=== PATIENT | female | born 1970 | race Caucasian/White ===

== ENCOUNTER 2017-01-28 13:48 | Outpatient (RCR) | payer MEDICAID | END 2017-03-31 10:26 | disposition home or self-care (01) | LOC: WSPT 13:48 | DX: M54.9 Dorsalgia, unspecified (principal) ==

== ENCOUNTER 2019-08-31 20:59 | Emergency (ER) | payer SELFPAY ==
[~2019-08-31] VITALS: Ht 162.6 cm; Wt 72.7 kg
[2019-08-31 21:13] VITALS: BP 133/85; PULSE 102; TEMP 98.1
[2019-08-31] MEDS ORDERED: MULTI VITAMINS1 TAB PO (21:29)
[2019-08-31] MEDS ORDERED: CRUTCHES MC ×2 (22:09)
[2019-09-01] MEDS ORDERED: CRUTCHES MC ×3 (11:07→12:59)
== END 2019-08-31 22:17 | disposition home or self-care (01) ==
LOC: COL.ER 20:59
DX: S86.111A Strain of other muscle(s) and tendon(s) of posterior muscle group at lower leg level, right leg, initial encounter (principal); X50.1XXA Overexertion from prolonged static or awkward postures, initial encounter; Y93.02 Activity, running

== ENCOUNTER → 2019-12-07 | Outpatient (CLI) | payer MEDICAID ==
[~2019-12-07] MED LIST: CRUTCHES MC; MULTI VITAMINS1 TAB PO
== END ==
LOC: MC.RAD 13:33
DX: Z12.31 Encounter for screening mammogram for malignant neoplasm of breast (principal)

== ENCOUNTER 2019-12-10 00:43 | Emergency (ER) | payer MEDICAID ==
[~2019-12-10] VITALS: Ht 162.6 cm; Wt 77.7 kg
[2019-12-10 00:47] VITALS: BP 112/75; TEMP 98.2
[2019-12-10] MEDS ORDERED: PREDNISONE20 MG PO (01:08)
[2019-12-10] MEDS ORDERED: ATARAX50 MG PO (01:08)
[2019-12-10 02:00] VITALS: PULSE 76
== END 2019-12-10 02:00 | disposition home or self-care (01) ==
LOC: COL.ER 00:43
DX: M79.89 Other specified soft tissue disorders (principal); T78.40XA Allergy, unspecified, initial encounter; S60.562A Insect bite (nonvenomous) of left hand, initial encounter; W57.XXXA Bitten or stung by nonvenomous insect and other nonvenomous arthropods, initial encounter
CPT/HCPCS: J7512

== ENCOUNTER 2020-02-11 16:13 | Emergency (ER) | payer MEDICAID ==
[~2020-02-11] VITALS: Ht 162.6 cm; Wt 76.8 kg
[~2020-02-11 16:13] MED LIST changes: +ATARAX50 MG PO; +PREDNISONE20 MG PO
[2020-02-11 16:23] VITALS: TEMP 98.3
[2020-02-11 17:15] LABS: BASO % 0.5 % (0.0-2.0); EOS # 0.1 (0.0-0.7); EOS % 1.4 % (0-4.0); GRAN # 3.5 (1.4-6.5); GRAN % 63.2 % (42.2-75.2); HEMATOCRIT 38.8 % (37.0-47.0); LYMPH # 1.4 (1.2-3.4); LYMPH % 25.4 % (20.0-51.0); MEAN CELL VOLUME 91 fl (80.0-100.0); MEAN CORPUSCULAR HEMOGLOBIN 30 pg (27.0-31.0); MEAN CORPUSCULAR HGB CONC 34 g/dl (33.0-37.0); MEAN PLATELET VOLUME 11.2 fl (7.4-10.4); MONO # 0.5 (0.1-0.6); MONO % 9.3 % (1.7-9.3); PLATELET COUNT 280 K/mm3 (130-400); RED BLOOD COUNT 4.28 M/mm3 (4.10-5.30); REDCELL DISTRIBUTION WIDTH-CV 12.5 % (11.5-14.5)
[2020-02-11 17:20] LABS: ALANINE AMINOTRANSFERASE 8 U/L (4-34); ALBUMIN 4.6 gm/dL (3.5-5.0); ALKALINE PHOSPHATASE 54 U/L (50-136); ANION GAP 12 mmol/L (7-16); AST,SGOT 24 U/L (15-37); BILIRUBIN,TOTAL 0.4 mg/dL (0.0-1.0); BLOOD UREA NITROGEN 16 mg/dL (7-17); C-REACTIVE PROTEIN < 0.5 mg/dL (0.0-0.9); CALCIUM 8.9 mg/dL (8.4-10.2); CARBON DIOXIDE 22 mmol/L (22-30); CHLORIDE 105 mmol/L (98-107); CREATININE, serum 0.61 (0.52-1.25); GLUCOSE 96 mg/dL (74-106); LIPASE 88 U/L (23-300); POTASSIUM 3.7 mmol/L (3.4-5.0); SODIUM 138 mmol/L (137-145); TOTAL PROTEIN 7.9 gm/dL (6.4-8.2)
[2020-02-11 17:29] LABS: TROPONIN-I < 0.012 ng/mL (0.000-0.035)
[2020-02-11 19:39] VITALS: BP 137/92; PULSE 83
== END 2020-02-11 19:43 | disposition home or self-care (01) ==
LOC: COL.ER 16:13
PROVIDERS: Emergency Medicine
DX: R07.89 Other chest pain (principal); I10 Essential (primary) hypertension; F41.9 Anxiety disorder, unspecified; Z88.8 Allergy status to other drugs, medicaments and biological substances; Z79.52 Long term (current) use of systemic steroids
CPT/HCPCS: Q9967

== ENCOUNTER 2020-04-15 13:11 | Emergency (ER) | payer MEDICAID ==
[~2020-04-15] VITALS: Ht 162.6 cm; Wt 72.3 kg
[2020-04-15 13:18] VITALS: TEMP 98.4
[2020-04-15 15:20] VITALS: BP 122/78; PULSE 92
== END 2020-04-15 15:20 | disposition home or self-care (01) ==
LOC: COL.ER 13:11
DX: U07.1 COVID-19 (principal); Z88.1 Allergy status to other antibiotic agents; Z88.8 Allergy status to other drugs, medicaments and biological substances

== ENCOUNTER 2020-04-27 22:45 | Emergency (ER) | payer MEDICAID ==
[~2020-04-27] VITALS: Ht 162.6 cm; Wt 72.3 kg
[2020-04-27 23:00] VITALS: BP 134/82; TEMP 98.8
[2020-04-28 00:54] VITALS: PULSE 89
== END 2020-04-28 00:54 | disposition home or self-care (01) ==
LOC: COL.ER 22:45
DX: M25.561 Pain in right knee (principal); Z88.1 Allergy status to other antibiotic agents; Z88.8 Allergy status to other drugs, medicaments and biological substances

== ENCOUNTER 2020-05-21 22:33 | Emergency (ER) | payer MEDICAID ==
[~2020-05-21] VITALS: Ht 162.6 cm; Wt 71.4 kg
[2020-05-21 22:38] VITALS: TEMP 98.7
[2020-05-21 23:33] VITALS: BP 132/70; PULSE 72
== END 2020-05-21 23:33 | disposition home or self-care (01) ==
LOC: COL.ER 22:33
DX: M25.561 Pain in right knee (principal); Z88.1 Allergy status to other antibiotic agents; Z88.8 Allergy status to other drugs, medicaments and biological substances

== ENCOUNTER → 2020-07-02 | Outpatient (CLI) | payer OTHER, MEDICAID ==
[~2020-07-02] MED LIST changes: +APRESOLINE 10MG10 MG PO; +DULOXETINE HCL40 MG PO; +FLEXERIL 1010 MG/TAB PO; +FLONASE NASAL S16 GM NS; +HUMIRA(CF)40 MG/0.4 SQ; +LYRICA 150MG C150 MG PO; +NAPROSYN500 MG PO; +PREDNISONE 5MG5 MG PO; +PRILOSEC 20MG20 MG PO; +VIVITROL380 MG IM
== END ==
LOC: COL.VAS 13:23
DX: M25.461 Effusion, right knee (principal); M79.661 Pain in right lower leg

== ENCOUNTER 2020-07-09 14:30 | Emergency (ER) | payer OTHER, MEDICAID ==
[~2020-07-09] VITALS: Ht 162.6 cm; Wt 73.6 kg
[~2020-07-09 14:30] MED LIST changes: -APRESOLINE 10MG10 MG PO; -DULOXETINE HCL40 MG PO; -FLEXERIL 1010 MG/TAB PO; -FLONASE NASAL S16 GM NS; -HUMIRA(CF)40 MG/0.4 SQ; -LYRICA 150MG C150 MG PO; -NAPROSYN500 MG PO; -PREDNISONE 5MG5 MG PO; -PRILOSEC 20MG20 MG PO; -VIVITROL380 MG IM
[2020-07-09 14:38] VITALS: BP 118/65; TEMP 97.9
[2020-07-09] MEDS ORDERED: VIVITROL380 MG IM (14:46)
[2020-07-09] MEDS ORDERED: DULOXETINE HCL40 MG PO (14:47)
[2020-07-09] MEDS ORDERED: PRILOSEC 20MG20 MG PO (14:47)
[2020-07-09] MEDS ORDERED: APRESOLINE 10MG10 MG PO (14:48)
[2020-07-09] MEDS ORDERED: FLEXERIL 1010 MG/TAB PO (15:26)
[2020-07-09] MEDS ORDERED: NAPROSYN500 MG PO (15:26)
[2020-07-09 15:38] VITALS: PULSE 89
== END 2020-07-09 15:38 | disposition home or self-care (01) ==
LOC: COL.ER 14:30
DX: M25.50 Pain in unspecified joint (principal); M25.561 Pain in right knee; Z88.8 Allergy status to other drugs, medicaments and biological substances
CPT/HCPCS: J1885

== ENCOUNTER 2020-07-15 09:00 | Outpatient (RCR) | payer OTHER, MEDICAID ==
[~2020-07-15 09:00] MED LIST changes: +APRESOLINE 10MG10 MG PO; +DULOXETINE HCL40 MG PO; +FLEXERIL 1010 MG/TAB PO; +NAPROSYN500 MG PO; +PRILOSEC 20MG20 MG PO; +VIVITROL380 MG IM
== END 2020-08-23 08:35 | disposition home or self-care (01) ==
LOC: WSC 09:00
DX: M25.561 Pain in right knee (principal)

== ENCOUNTER → 2020-08-12 | Outpatient (CLI) | payer OTHER, MEDICAID ==
[~2020-08-12] MED LIST changes: +FLONASE NASAL S16 GM NS; +HUMIRA(CF)40 MG/0.4 SQ; +LYRICA 150MG C150 MG PO; +PREDNISONE 5MG5 MG PO
== END ==
LOC: COL.RAD 08:30
DX: R91.8 Other nonspecific abnormal finding of lung field (principal)

== ENCOUNTER → 2020-10-01 | Outpatient (CLI) | payer MEDICAID | LOC: COL.VAS 13:42 | DX: R07.9 Chest pain, unspecified (principal); R06.02 Shortness of breath; R05 Cough ==

== ENCOUNTER → 2021-01-02 | Outpatient (CLI) | payer MEDICAID ==
[2021-01-02 12:42] LABS: BASO # 0.1 (0.0-0.2); BASO % 0.6 % (0.0-2.0); EOS # 0.2 (0.0-0.7); EOS % 2.1 % (0-4.0); GRAN # 5.1 (1.4-6.5); GRAN % 65.6 % (42.2-75.2); HEMATOCRIT 42.2 % (37.0-47.0); HEMOGLOBIN 13.7 g/dl (12.5-16.0); LYMPH # 1.6 (1.2-3.4); LYMPH % 20.7 % (20.0-51.0); MEAN CELL VOLUME 91 fl (80.0-100.0); MEAN CORPUSCULAR HEMOGLOBIN 29 pg (27.0-31.0); MEAN CORPUSCULAR HGB CONC 33 g/dl (33.0-37.0); MEAN PLATELET VOLUME 10.2 fl (7.4-10.4); MONO # 0.8 (0.1-0.6); MONO % 10.7 % (1.7-9.3); PLATELET COUNT 294 K/mm3 (130-400); RED BLOOD COUNT 4.66 M/mm3 (4.10-5.30); REDCELL DISTRIBUTION WIDTH-CV 14.2 % (11.5-14.5)
[2021-01-02 12:58] LABS: ALANINE AMINOTRANSFERASE 8 U/L (0-55); ALBUMIN 4.1 gm/dL (3.5-5.0); ALKALINE PHOSPHATASE 66 U/L (0-750); ANION GAP 11 mmol/L; AST,SGOT 23 U/L (5-34); BILIRUBIN,TOTAL 0.4 mg/dL (0.2-1.2); BLOOD UREA NITROGEN 11 mg/dL (7-19); CALCIUM 9.8 mg/dL (8.4-10.2); CARBON DIOXIDE 26 mEq/L (22-29); CHLORIDE 101 mmol/L (98-107); CREATININE, serum 0.92 mg/dL (0.57-1.11); GLUCOSE 98 mg/dL (70-99); POTASSIUM 4.3 mmol/L (3.5-4.5); SODIUM 138 mmol/L (136-145); TOTAL PROTEIN 7.9 gm/dL (6.2-8.1)
[2021-01-02 13:04] LABS: ALCOHOL(ethanol),MEDICAL < 10 mg/dL (0-10)
== END ==
LOC: COL.LAB 12:01
PROVIDERS: Registered Nurse
DX: K59.00 Constipation, unspecified (principal); F10.20 Alcohol dependence, uncomplicated; R10.13 Epigastric pain; R10.2 Pelvic and perineal pain

== ENCOUNTER 2021-01-03 16:22 | Emergency (ER) | payer MEDICAID ==
[~2021-01-03] VITALS: Ht 162.6 cm; Wt 81.6 kg
[~2021-01-03 16:22] MED LIST changes: -FLONASE NASAL S16 GM NS; -HUMIRA(CF)40 MG/0.4 SQ; -LYRICA 150MG C150 MG PO; -PREDNISONE 5MG5 MG PO
[2021-01-03 16:59] VITALS: TEMP 98.2
[2021-01-03 17:46] LABS: COLLECTION METHOD CLEAN CATCH
[2021-01-03 17:57] LABS: BASO # 0.1 (0.0-0.2); BASO % 0.8 % (0.0-2.0); EOS # 0.1 (0.0-0.7); EOS % 2.4 % (0-4.0); GRAN # 3.3 (1.4-6.5); GRAN % 56.5 % (42.2-75.2); HEMATOCRIT 40.5 % (37.0-47.0); HEMOGLOBIN 13.2 g/dl (12.5-16.0); LYMPH # 1.6 (1.2-3.4); MEAN CELL VOLUME 90 fl (80.0-100.0); MEAN CORPUSCULAR HEMOGLOBIN 30 pg (27.0-31.0); MEAN CORPUSCULAR HGB CONC 33 g/dl (33.0-37.0); MEAN PLATELET VOLUME 10.7 fl (7.4-10.4); MONO # 0.8 (0.1-0.6); PLATELET COUNT 287 K/mm3 (130-400); RED BLOOD COUNT 4.48 M/mm3 (4.10-5.30); REDCELL DISTRIBUTION WIDTH-CV 13.9 % (11.5-14.5)
[2021-01-03 18:07] LABS: MUCOUS Present /lpf; PH 5 (5-8); SQUAMOUS EPITHELIAL 0-2 /hpf; URINE APPEARANCE Hazy; URINE BACTERIA None Seen /hpf; URINE BILIRUBIN Negative (NEGATIVE); URINE BLOOD Negative (NEGATIVE); URINE COLOR Yellow; URINE GLUCOSE Negative (NEGATIVE); URINE KETONE Trace (NEGATIVE); URINE LEUKOCYTE ESTERASE Negative (NEGATIVE); URINE NITRATE Negative (NEGATIVE); URINE PROTEIN(semi-quant) Negative (NEGATIVE); URINE RBC 0-2 /hpf
[2021-01-03 18:12] LABS: ALBUMIN 4.1 gm/dL (3.5-5.0); BILIRUBIN,TOTAL 0.4 mg/dL (0.2-1.2); C-REACTIVE PROTEIN 0.1 mg/dL (0.00-0.50); CALCIUM 9.9 mg/dL (8.4-10.2); CREATININE, serum 0.88 mg/dL (0.57-1.11); POTASSIUM 3.9 mmol/L (3.5-4.5); TOTAL PROTEIN 7.8 gm/dL (6.2-8.1)
[2021-01-03] MEDS ORDERED: LYRICA 150MG C150 MG PO (18:24)
[2021-01-03] MEDS ORDERED: FLONASE NASAL S16 GM NS (18:24)
[2021-01-03] MEDS ORDERED: HUMIRA(CF)40 MG/0.4 SQ (18:24)
[2021-01-03] MEDS ORDERED: PREDNISONE 5MG5 MG PO (18:25)
[2021-01-03 20:13] VITALS: BP 129/63; PULSE 81
== END 2021-01-03 20:13 | disposition home or self-care (01) ==
LOC: COL.ER 16:22
PROVIDERS: Nurse Practitioner Primary Care
DX: R10.11 Right upper quadrant pain (principal); R11.0 Nausea; Z20.822 Contact with and (suspected) exposure to COVID-19; Z32.02 Encounter for pregnancy test, result negative
CPT/HCPCS: J1885; J2405; J7030; Q9967

== ENCOUNTER → 2021-02-06 | Outpatient (CLI) | payer MEDICAID ==
[~2021-02-06] MED LIST changes: +FLONASE NASAL S16 GM NS; +HUMIRA(CF)40 MG/0.4 SQ; +LYRICA 150MG C150 MG PO; +PREDNISONE 5MG5 MG PO
[2021-02-07 17:12] LABS: TB GOLD INTERPRETATION Negative (Negative)
[2021-02-10 09:10] LABS: ANGIOTENSIN CONVERTING ENZYME 16 U/L (16 - 85)
[2021-02-13 15:28] LABS: COCCIDIOIDES AB IGG Negative (Negative); COCCIDIOIDES AB IGM Negative (Negative); COCCIDIOIDES CF Negative (Negative)
== END ==
LOC: COL.LAB 09:07
PROVIDERS: Internal Medicine Pulmonary Disease
DX: R93.89 Abnormal findings on diagnostic imaging of other specified body structures (principal)

== ENCOUNTER → 2021-02-25 | Outpatient (CLI) | payer MEDICAID ==
--- NOTE | 2021-02-25 11:40 | NUR ---
PATIENT HAD REDBULL PRIOR TO TEST, WILL NEED TO RESCHEDULE
== END ==
LOC: COL.PUL 10:35
DX: R06.02 Shortness of breath (principal)

== ENCOUNTER → 2021-03-05 | Outpatient (CLI) | payer MEDICAID | LOC: COL.RAD 06:56 | DX: R10.11 Right upper quadrant pain (principal) ==

== ENCOUNTER → 2021-04-02 | Outpatient (CLI) | payer MEDICAID | LOC: COL.RAD 09:30 | DX: R10.11 Right upper quadrant pain (principal) | CPT/HCPCS: A9537; J2805 ==

== ENCOUNTER → 2021-04-08 | Outpatient (CLI) | payer MEDICAID | LOC: COL.PUL 12:37 | DX: R06.02 Shortness of breath (principal) | CPT/HCPCS: J7674 ==

== ENCOUNTER → 2021-05-08 | Outpatient (CLI) | payer MEDICAID | LOC: MC.RAD 13:37 | DX: Z12.31 Encounter for screening mammogram for malignant neoplasm of breast (principal) ==

== ENCOUNTER 2021-06-10 12:19 | Day surgery (SDC) | payer MEDICAID ==
[~2021-06-10] VITALS: Ht 162.6 cm; Wt 84.2 kg
[2021-06-10] MEDS ORDERED: CYMBALTA 20MG20 MG PO (13:27)
[2021-06-10] MEDS ORDERED: ROBAXIN 75750 MG/TAB PO (13:28)
[2021-06-10] MEDS ORDERED: KAPVAY0.1 MG PO (13:29)
[2021-06-10] MEDS ORDERED: MASON NATURAL2000 IU PO (13:30)
[2021-06-10] MEDS ORDERED: MULTI VITAMINS1 TAB PO (13:31)
[2021-06-10] MEDS ORDERED: CRESTOR20 MG PO (13:31)
[2021-06-10] MEDS ORDERED: TYLENOL 500MG500 MG PO (13:32)
[2021-06-10 13:48] VITALS: BP 129/67; PULSE 76; TEMP 96.9
[2021-06-10] MEDS ORDERED: MOTRIN 600600 MG/TAB PO (17:32)
[2021-06-10] MEDS ORDERED: NORCO 325 MG-51 TAB PO ×2 (17:33)
[2021-06-10] MEDS ORDERED: VIVITROL380 MG IM (17:57)
[2021-06-10 18:54] VITALS: BP 126/65; BP 127/61; BP 129/67; BP 134/60; PULSE 77; PULSE 78; PULSE 79; PULSE 82; TEMP 97.4
--- NOTE | 2021-06-10 21:44 | NUR ---
Report received from SHA Jackson. Patient arrived to the floor at approximately 1940 from her robotic melissa with Dr. Christensen. Full body assessment completed and post-op vital signs are WNL. Patient is A&Ox3, pleasant and slighty drowsy. is at the bedside. Patient has 5 lap sites, closed with glue and open to air. Incisions are well approximated and have no redness or swelling. Patient complains of nausea but states that pain is just at a 5/10 and tolerable. Patient is tolerating oral fluids and food well. Patient has voided urine without difficulty and is passing gas. Patient will discharge tonight to home with her spouse. Patient has no other questions or complaints at this time. Call light within reach.
[2021-06-10 21:51] VITALS: TEMP 97.4
[2021-06-10 22:29] VITALS: BP 111/59; BP 128/66; PULSE 77; PULSE 83
--- NOTE | 2021-06-11 03:59 | NUR ---
Patient is here post-op gallbladder removal. at the bedside. Patients vitals have been WNL and full body assessment shows nothing remarkable. Patient is tolerating PO fluids and food well. Patient was also able to void urine without difficulty, urine was pale yellow and clear. Patient also reports passing flatus and she feels that her pain and nausea are well controlled. IV site at the left forearm was discontinued and removed by this nurse. No signs of redness or swelling were noted, catheter tip was intact. Patient has met the criteria for discharge. Discharge teaching/education has been reviewed with the patient, she expresses understanding and denies any questions. Patient leaves the surgical floor via wheelchair with PCT.
== END 2021-06-10 22:00 | disposition home or self-care (01) ==
LOC: SDCO 12:19 → SURG 18:38 → SDCO 22:00
DX: K80.64 Calculus of gallbladder and bile duct with chronic cholecystitis without obstruction (principal); M06.9 Rheumatoid arthritis, unspecified; F17.290 Nicotine dependence, other tobacco product, uncomplicated; Z79.899 Other long term (current) drug therapy
CPT/HCPCS: OP; J0690; J1885; J2405; J2704; J3010; J7120; Q9967

== ENCOUNTER 2021-08-25 09:32 | Emergency (ER) | payer MEDICAID ==
[~2021-08-25] VITALS: Ht 162.6 cm; Wt 83.2 kg
[~2021-08-25 09:32] MED LIST changes: +CRESTOR20 MG PO; +CYMBALTA 20MG20 MG PO; +KAPVAY0.1 MG PO; +MASON NATURAL2000 IU PO; +MOTRIN 600600 MG/TAB PO; +NORCO 325 MG-51 TAB PO; +ROBAXIN 75750 MG/TAB PO; +TYLENOL 500MG500 MG PO
[2021-08-25 09:43] VITALS: TEMP 97.9
[2021-08-25] MEDS ORDERED: ENBREL50 MG/1 ML SQ (09:46)
[2021-08-25 11:50] VITALS: BP 138/83; PULSE 88
== END 2021-08-25 11:50 | disposition home or self-care (01) ==
LOC: COL.ER 09:32
DX: M25.542 Pain in joints of left hand (principal); M25.541 Pain in joints of right hand; M25.59 Pain in other specified joint; M54.50 Low back pain, unspecified; F17.290 Nicotine dependence, other tobacco product, uncomplicated; Z87.39 Personal history of other diseases of the musculoskeletal system and connective tissue
CPT/HCPCS: J1200; J1885

== ENCOUNTER 2021-10-23 09:21 | Emergency (ER) | payer MEDICAID ==
[~2021-10-23] VITALS: Ht 160 cm; Wt 82.7 kg
[~2021-10-23 09:21] MED LIST changes: +ENBREL50 MG/1 ML SQ
[2021-10-23 09:53] VITALS: TEMP 98.1
[2021-10-23] MEDS ORDERED: ZOFRAN ODT4 MG PO (11:27)
[2021-10-23] MEDS ORDERED: FLEXERIL 1010 MG/TAB PO (11:28)
[2021-10-23 11:46] VITALS: BP 124/82; PULSE 88
== END 2021-10-23 11:46 | disposition home or self-care (01) ==
LOC: COL.ER 09:21
DX: S80.01XA Contusion of right knee, initial encounter (principal); M54.2 Cervicalgia; R11.0 Nausea; F17.290 Nicotine dependence, other tobacco product, uncomplicated; W10.9XXA Fall (on) (from) unspecified stairs and steps, initial encounter
CPT/HCPCS: J1885

== ENCOUNTER 2021-11-30 13:18 | Emergency (ER) | payer MEDICAID ==
[~2021-11-30] VITALS: Ht 160 cm; Wt 77.3 kg
[~2021-11-30 13:18] MED LIST changes: +ZOFRAN ODT4 MG PO
[2021-11-30 13:19] VITALS: TEMP 97.9
[2021-11-30 14:24] LABS: ALANINE AMINOTRANSFERASE 14 U/L (0-55); ALBUMIN 4.1 gm/dL (3.5-5.0); ALKALINE PHOSPHATASE 48 U/L (40-150); ANION GAP 14 mmol/L (7-16); AST,SGOT 18 U/L (5-34); BILIRUBIN,TOTAL 0.4 mg/dL (0.2-1.2); BLOOD UREA NITROGEN 13 mg/dL (7-19); CALCIUM 9.5 mg/dL (8.4-10.2); CARBON DIOXIDE 22 mmol/L (22-29); CHLORIDE 102 mmol/L (98-107); CREATININE, serum 0.94 mg/dL (0.57-1.11); GLUCOSE 104 mg/dL (70-99); MAGNESIUM 2.3 mg/dL (1.6-2.6); POTASSIUM 3.3 mmol/L (3.5-4.5); SODIUM 138 mmol/L (136-145); TOTAL PROTEIN 7.6 gm/dL (6.2-8.1)
[2021-11-30 14:29] LABS: BASO % 0.4 % (0.0-2.0); EOS # 0.1 K/mm3 (0.0-0.7); EOS % 1.1 % (0.0-4.0); GRAN # 5.5 K/mm3 (1.4-6.5); GRAN % 59.1 % (42.2-75.2); HEMATOCRIT 43.6 % (37.0-47.0); HEMOGLOBIN 14.3 g/dl (12.5-16.0); LYMPH # 2.6 K/mm3 (1.2-3.4); LYMPH % 28.4 % (20.0-51.0); MEAN CELL VOLUME 90 fl (80.0-100.0); MEAN CORPUSCULAR HEMOGLOBIN 29 pg (27-31); MEAN CORPUSCULAR HGB CONC 33 g/dl (33.0-37.0); MEAN PLATELET VOLUME 11.7 fl (7.4-10.4); MONO # 0.9 K/mm3 (0.1-0.6); MONO % 9.9 % (1.7-9.3); PLATELET COUNT 315 K/mm3 (130-400); RED BLOOD COUNT 4.87 M/mm3 (4.10-5.30); REDCELL DISTRIBUTION WIDTH-CV 15.1 % (11.5-14.5)
[2021-11-30 14:31] LABS: TROPONIN-I < 0.010 ng/mL (0.00-0.033)
[2021-11-30 16:20] VITALS: BP 118/84; PULSE 81
== END 2021-11-30 16:20 | disposition home or self-care (01) ==
LOC: COL.ER 13:18
PROVIDERS: Emergency Medicine
DX: R53.81 Other malaise (principal); R51.9 Headache, unspecified; R06.02 Shortness of breath; R00.0 Tachycardia, unspecified
CPT/HCPCS: J1790; J1885; J2405; J7120

== ENCOUNTER 2021-12-08 10:00 | Outpatient (RCR) | payer MEDICAID | END 2021-12-10 | disposition home or self-care (01) | LOC: WSPT | DX: M25.561 Pain in right knee (principal); G89.29 Other chronic pain ==

== ENCOUNTER 2022-02-06 10:47 | Day surgery (SDC) | payer MEDICAID ==
[2022-02-06] VITALS (10 sets, daily range): BP systolic 133–147; BP diastolic 69–93; PULSE 70–92
[~2022-02-06] VITALS: Ht 160 cm; Wt 78.9 kg
[~2022-02-06 10:47] MED LIST changes: +CYMBALTA 60MG60 MG PO; -DULOXETINE HCL40 MG PO; -MASON NATURAL2000 IU PO; +PRIL40 PO; -PRILOSEC 20MG20 MG PO; +VITAMIN D31000 IU PO
[2022-02-06] MEDS ORDERED: ENBREL50 MG/1 ML SQ (11:31)
[2022-02-06 11:32] LABS: HEMATOCRIT 43.5 % (37.0-47.0); HEMOGLOBIN 13.4 g/dl (12.5-16.0); MEAN CELL VOLUME 91 fl (80.0-100.0); MEAN CORPUSCULAR HEMOGLOBIN 28 pg (27-31); MEAN CORPUSCULAR HGB CONC 31 g/dl (33.0-37.0); MEAN PLATELET VOLUME 11.8 fl (7.4-10.4); PLATELET COUNT 320 K/mm3 (130-400); RED BLOOD COUNT 4.78 M/mm3 (4.10-5.30); REDCELL DISTRIBUTION WIDTH-CV 14.5 % (11.5-14.5)
[2022-02-06] MEDS ORDERED: VIVITROL380 MG IM (11:32)
[2022-02-06 11:42] LABS: INR 0.9 (0.8-3.0); PROTHROMBIN TIME 10.1 SECONDS (9.7-12.8)
[2022-02-06 11:45] LABS: PARTIAL THROMBOPLASTIN TIME 33.6 SECONDS (26.0-37.0)
[2022-02-06 11:52] LABS: CALCIUM 9.7 mg/dL (8.4-10.2); CREATININE, serum 0.73 mg/dL (0.57-1.11); POTASSIUM 4.2 mmol/L (3.5-4.5)
[2022-02-06] MEDS ORDERED: MASON NATURAL1000 MG PO (12:15)
[2022-02-06] MEDS ORDERED: CATAPRES 0.1MG0.1 MG PO (12:17)
[2022-02-06] MEDS ORDERED: XANAX 0.5MG0.5 MG PO (12:18)
[2022-02-06] MEDS ORDERED: COMPLETE MULTI1 TAB PO (12:19)
[2022-02-06] MEDS ORDERED: ZOLOFT 100MG100 MG PO (12:20)
[2022-02-06] MEDS ORDERED: ASPIRIN E.C. 8181 MG PO (12:21)
[2022-02-06] MEDS ORDERED: NITROSTAT0.4 MG/TAB SL (12:22)
[2022-02-06] MEDS ORDERED: PROAIR HFA0.09 MG/AC IH (12:23)
--- NOTE | 2022-02-06 13:29 | NUR ---
SEE MERGE FOR VITAL SIGNS, ASSESSMENTS, INTERVENTIONS AND MEDICATIONS GIVEN.
--- NOTE | 2022-02-06 14:31 | NUR ---
Pt returned from heart cath procedure. Bedside report recieved from SHA Garcia. Pt c/o pain rated 9/10 from base of rt thumb extending up arm and to rt shoulder. TR band in place. No bleeding or edema noted to wrist or forearm. Area is soft to palpation and no increase in pain with palpation. Pt states this has been constant pain following attempts at rt radial access. Rt arm is positioned on pillow for comfort. Jose Santiago NP notified of pt's c/o pain. Tylenol ordered and was administered. Dressing to rt femoral puncture site is clean, dry and intact, area is soft to palpation. Call light in reach. Fiance at bedside.
--- NOTE | 2022-02-06 14:54 | NUR ---
Pt states improves for short time then returns at rate of 9/10. Warm blanket applied to rt forearm with some relief expressed by pt. Area remains soft to palpation, free of hematoma or swelling with brisk cap refill.
--- NOTE | 2022-02-06 16:54 | NUR ---
Report given to SHA Rivas who will take over recovery of pt. Pain in rt arm is improved. She reports occasional throbbing pain rated 5/10, but improved overall. New warmed blanket applied for comfort. Meal tray arrives after delay. Pt has been sipping fluids and tolerating well, and has denied desire for snack foods, opting to wait for arrival of tray. Call ligth remains in reach.
--- NOTE | 2022-02-06 17:00 | NUR ---
Pt care assumed, bedside report was received from Morgan. DALTON. Pt is doing fine, both puncture sites are looking good with no evidence of bleeding, cms is intact distal to both. We are working on deflating TR band, and I reviewed dc/fu instructions with pt and at this time, and plan to again after pt finishes her dinner.
--- NOTE | 2022-02-06 17:50 | NUR ---
TR band was deflated with no problem. Site dressed with bandaid, folded 2x2 and coban. cms intact distal. At 1730, bedrest was complete, and pt was able to sit at edge of bed, then ambulate in room with no problem. steady gait. rt groin site remains soft, dressing clean and dry. We reviewed dc/rx and fu instructions again; no questions were raised. IV dc'd, cath intact, dressing applied. I escorted pt to exit via wheelchair.
== END 2022-02-06 18:58 | disposition home or self-care (01) ==
LOC: COL.CAR 10:47
PROVIDERS: Internal Medicine Interventional Cardiology
DX: R07.89 Other chest pain (principal); R94.39 Abnormal result of other cardiovascular function study; R94.31 Abnormal electrocardiogram [ECG] [EKG]; R06.02 Shortness of breath; I73.9 Peripheral vascular disease, unspecified; R00.0 Tachycardia, unspecified
CPT/HCPCS: C1760; C1769; C1894; J1644; J2250; J3010; Q9967

== ENCOUNTER → 2022-02-11 | Outpatient (CLI) | payer MEDICAID ==
[~2022-02-11] MED LIST changes: +ASPIRIN E.C. 8181 MG PO; +CATAPRES 0.1MG0.1 MG PO; +COMPLETE MULTI1 TAB PO; +MASON NATURAL1000 MG PO; +NITROSTAT0.4 MG/TAB SL; +PROAIR HFA0.09 MG/AC IH; +XANAX 0.5MG0.5 MG PO; +ZOLOFT 100MG100 MG PO
== END ==
LOC: COL.RAD 13:19
DX: R93.89 Abnormal findings on diagnostic imaging of other specified body structures (principal); R10.11 Right upper quadrant pain; Z90.49 Acquired absence of other specified parts of digestive tract

== ENCOUNTER → 2022-12-10 | Outpatient (RCR) | payer MEDICAID ==
[~2022-12-10] MED LIST changes: +CARDIZEM CD 12120 MG PO; +LINZESS145CAP PO; +ORENCIA CL125 MG/1 M SQ; +PEPCID40 MG PO; +PROZAC60 MG PO; +REQUIP 0.5MG0.5 MG PO; +RESTASIS 60VL OP; +TOPROL XL 25MG25 MG PO
== END ==
LOC: WSPT
DX: M75.102 Unspecified rotator cuff tear or rupture of left shoulder, not specified as traumatic (principal)

== ENCOUNTER 2022-12-26 07:57 | Inpatient (IN) | payer MEDICAID ==
[2022-12-26] VITALS (669 sets, daily range): BP systolic 123–141; BP diastolic 84–89; PULSE 86–96; TEMP 96.7–98.5; O2SAT 72–100
[~2022-12-26] VITALS: Ht 157.5 cm; Wt 68.2 kg
[~2022-12-26 07:57] MED LIST changes: -CARDIZEM CD 12120 MG PO; -LINZESS145CAP PO; -ORENCIA CL125 MG/1 M SQ; -PEPCID40 MG PO; -PROZAC60 MG PO; -REQUIP 0.5MG0.5 MG PO; -RESTASIS 60VL OP; -TOPROL XL 25MG25 MG PO
[2022-12-26 08:19] LABS: BASO % 0.5 % (0.0-2.0); EOS # 0.2 K/mm3 (0.0-0.7); EOS % 2.6 % (0.0-4.0); GRAN # 5.3 K/mm3 (1.4-6.5); GRAN % 64.7 % (42.2-75.2); HEMATOCRIT 38.8 % (37.0-47.0); HEMOGLOBIN 11.9 g/dl (12.5-16.0); LYMPH # 1.8 K/mm3 (1.2-3.4); LYMPH % 21.9 % (20.0-51.0); MEAN CELL VOLUME 88 fl (80.0-100.0); MEAN CORPUSCULAR HEMOGLOBIN 27 pg (27-31); MEAN CORPUSCULAR HGB CONC 31 g/dl (33.0-37.0); MEAN PLATELET VOLUME 10.8 fl (7.4-10.4); MONO # 0.8 K/mm3 (0.1-0.6); MONO % 9.9 % (1.7-9.3); PLATELET COUNT 329 K/mm3 (130-400); RED BLOOD COUNT 4.41 M/mm3 (4.10-5.30)
[2022-12-26 08:39] LABS: ALANINE AMINOTRANSFERASE 15 U/L (0-55); ALBUMIN 4.1 gm/dL (3.5-5.0); ALKALINE PHOSPHATASE 81 U/L (40-150); ANION GAP 8 mmol/L (7-16); AST,SGOT 17 U/L (5-34); BILIRUBIN,TOTAL 0.1 mg/dL (0.2-1.2); BLOOD UREA NITROGEN 15 mg/dL (10-20); CALCIUM 9.5 mg/dL (8.4-10.2); CARBON DIOXIDE 28 mmol/L (22-29); CHLORIDE 102 mmol/L (98-107); CREATININE, serum 0.74 mg/dL (0.57-1.11); GLUCOSE 100 mg/dL (70-99); LIPASE 40 U/L (8-78); POTASSIUM 3.9 mmol/L (3.5-4.5); SODIUM 138 mmol/L (136-145); TOTAL PROTEIN 7.3 gm/dL (6.2-8.1)
[2022-12-26 08:42] LABS: COLLECTION METHOD CLEAN CATCH
[2022-12-26 08:55] LABS: MUCOUS Present (NOT PRESENT); URINE BACTERIA Rare /hpf (NONE SEEN); URINE RBC None Seen /hpf (0-2)
[2022-12-26 08:58] LABS: URINE APPEARANCE Clear (CLEAR/HAZY); URINE BLOOD Negative (NEGATIVE); URINE COLOR Yellow (YELLOW); URINE GLUCOSE Negative (NEGATIVE); URINE KETONE Negative (NEGATIVE); URINE NITRATE Negative (NEGATIVE); URINE PROTEIN(semi-quant) Negative (NEGATIVE); URINE UROBILINOGEN 0.2 E.U/dL (0.2-1.0)
[2022-12-26 08:59] LABS: TRICYCLIC ANTIDEPRESS URINE NEGATIVE; TSH w REFLEX 1.758 uIU/mL (0.350-4.940)
[2022-12-26 09:00] LABS: TROPONIN-I < 0.010 ng/mL (0.00-0.033)
[2022-12-26] MEDS ORDERED: PROZAC60 MG PO (09:19)
[2022-12-26] MEDS ORDERED: TOPROL XL 25MG25 MG PO (09:20)
[2022-12-26] MEDS ORDERED: ORENCIA CL125 MG/1 M SQ (09:22)
[2022-12-26] MEDS ORDERED: REQUIP 0.5MG0.5 MG PO (09:22)
[2022-12-26] MEDS ORDERED: RESTASIS 60VL OP (09:26)
[2022-12-26] MEDS ORDERED: LINZESS145CAP PO (09:26)
[2022-12-26] MEDS ORDERED: PEPCID40 MG PO (11:32)
--- NOTE | 2022-12-26 11:57 | NUR ---
1050 PT ARRIVED TO ICU 1 VIA WHEELCHAIR. PT SELF TRANSFERED INTO ICU BED WITH SBA. BELONGINGS INCLUDES PURSE, WALLET, CELL PHONE AND CLOTHES. PT DENIES WANTING BELONGINGS TO GO TO SECURITY, RECOMMEND PT FIANCE TO TAKE WALLET. PT STATES SHE HAS NO MONEY IN WALLET. PT IS ALERT AND ORIENTED X4. PT APPEARS TO BE ANXIOUS WITH QUESTIONS. DENIES PAIN AT THIS TIME.
--- NOTE | 2022-12-26 13:36 | NUR ---
PT C/O RIGHT SHOULDER AND RIGHT HIP PAIN CHRONIC. CALL TO DR. LUND TO REQUEST PRN TYLENOL AND K PAD PT REPORTS SHE USES HEAT AND ICE AT HOME WELL. ORDERS PLACED AT THIS TIME.
--- NOTE | 2022-12-26 15:19 | NUR ---
1510 pt heard talking to herself or someone else. When nurse went into check on pt, pt stated "yeah we are doing fine" This nurse then asked neuro questions and asked if she knew why she was in the hospital pt stated "because im having trouble sleeping, asking weird and talking to myslef" This nurse asked if she thought someone else was in the room with her, pt denies and laughs saying "I just talk to myself often." neurological checks WNL without concerns.
[2022-12-27] VITALS (417 sets, daily range): BP systolic 129–153; BP diastolic 87–101; PULSE 88–97; TEMP 97.5–98.5; O2SAT 87–100
--- NOTE | 2022-12-27 04:58 | NUR ---
PT HAD UNEVENTFUL NIGHT. SLEPT THROUGH MOST OF NIGHT. BEFORE BED COMPLAINED OF HEADACHE AND SHOULDER PAIN, BUT WAS CONTROLLED WITH PO TYLENOL. PT HAD HARD TIME FALLING ASLEEP AND STAYING ASLEEP DUE TO RESTLESS LEG, AND JITTERY MOVEMENTS, WELL HER PAIN. ALL NEURO CHECKS WERE WNL AND NOT OF CONCERN. HOWEVER, RN OBSERVED AND HEARD PT HAVING HALLUCINATORY SPEECH OCCAISIONALLY THROUGHOUT NIGHT. PLAN OF CARE ONGOING.
--- NOTE | 2022-12-27 07:00 | NUR ---
Bedside report received from SHA Bennett. Pt was able to sleep for about 6 hours overnight. Woke up around 0600 in a slight panic; PRN xanax given at that time. Pt now appears to be sleeping at this time; no signs/symptoms of discomfort.
[2022-12-27] MEDS ORDERED: CARDIZEM CD 12120 MG PO ×3 (09:19→11:26)
--- NOTE | 2022-12-27 11:45 | NUR ---
Pt discharged to home at this time; accompanied by boyfriend Tom. Discharge instructions explainted to both pt and Tom. Both verbalize understanding. Instructed return to ER if symptoms become worse. Pt has purse, phone, and clothes in her possession at time of discharge.
== END 2022-12-27 11:45 | disposition home or self-care (01) | DRG 93 ==
LOC: COL.ER 07:57 → ICU 09:49
PROVIDERS: Emergency Medicine; ADMIT Internal Medicine
DX: G92.8 Other toxic encephalopathy (principal); F43.10 Post-traumatic stress disorder, unspecified; F32.A Depression, unspecified; F41.9 Anxiety disorder, unspecified; M79.7 Fibromyalgia; K21.9 Gastro-esophageal reflux disease without esophagitis
CPT/HCPCS: J1650; J2060; J7120

== ENCOUNTER 2023-01-07 10:30 | Outpatient (RCR) | payer MEDICAID ==
[~2023-01-07 10:30] MED LIST changes: +CARDIZEM CD 12120 MG PO; +LINZESS145CAP PO; +ORENCIA CL125 MG/1 M SQ; +PEPCID40 MG PO; +PROZAC60 MG PO; +REQUIP 0.5MG0.5 MG PO; +RESTASIS 60VL OP; +TOPROL XL 25MG25 MG PO
== END 2023-01-09 ==
LOC: WSPT
DX: M75.102 Unspecified rotator cuff tear or rupture of left shoulder, not specified as traumatic (principal)

== ENCOUNTER → 2023-12-02 | Outpatient (CLI) | payer MEDICAID | LOC: MC.RAD 09:42 | DX: Z12.31 Encounter for screening mammogram for malignant neoplasm of breast (principal) ==

== ENCOUNTER → 2024-02-14 | Outpatient (CLI) | payer MEDICAID ==
[2024-02-14 09:13] LABS: BASO % 0.6 % (0.0-2.0); EOS # 0.2 K/mm3 (0.0-0.7); GRAN # 3.4 K/mm3 (1.4-6.5); GRAN % 50.6 % (42.2-75.2); HEMOGLOBIN 10.5 g/dl (12.5-16.0); LYMPH # 1.9 K/mm3 (1.2-3.4); LYMPH % 28.6 % (20.0-51.0); MEAN CELL VOLUME 82 fl (80.0-100.0); MEAN CORPUSCULAR HEMOGLOBIN 25 pg (27-31); MEAN CORPUSCULAR HGB CONC 31 g/dl (33.0-37.0); MEAN PLATELET VOLUME 11.1 fl (7.4-10.4); MONO # 1.1 K/mm3 (0.1-0.6); PLATELET COUNT 288 K/mm3 (130-400); REDCELL DISTRIBUTION WIDTH-CV 15.5 % (11.5-14.5)
[2024-02-14 09:16] LABS: HEMATOCRIT 34.4 % (37.0-47.0)
[2024-02-14 09:45] LABS: CHOLESTEROL RISK RATIO 3.2
[2024-02-14 10:26] LABS: THYROID STIMULATING HORMONE 2.789 uIU/mL (0.350-4.940)
[2024-02-15 00:44] LABS: INSULIN 9 uIU/mL (2-23)
== END ==
LOC: COL.LAB 08:27
PROVIDERS: Physician Assistant
DX: R53.83 Other fatigue (principal); Z68.31 Body mass index [BMI] 31.0-31.9, adult